=== PATIENT | female | born 2000 | race Caucasian/White ===

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

== ENCOUNTER 2020-03-10 03:10 | Emergency (ER) | payer BC, OTHER ==
[~2020-03-10] VITALS: Ht 152.4 cm; Wt 50.8 kg
[2020-03-10 03:18] VITALS: BP 110/62
[2020-03-10] MEDS ORDERED: KETOROLAC 60 MG/2 ML VIAL IM ONE (03:30)
--- NOTE | 2020-03-10 03:54 | NUR ---
TORADOL WAS ORDERED FOR PT, MED WITHDRAWN AND TAKEN TO BEDSIDE, HOWEVER, PT REFUSED MEDICATION, STATING SHE DID NOT WANT A SHOT. MED WASTED ANDRES RIBERA AWARE
[2020-03-10] MEDS ORDERED: IBUPROFEN 800 MG TAB PO ONE (03:55)
--- NOTE | 2020-03-10 04:15 | NUR ---
PT STATES PAIN IS BETTER, NOW 01/31
--- NOTE | 2020-03-10 04:58 | NUR ---
WRAP PT'S LEFT KNEE WITH 3" XIOMARA WRAP, CHECKED PMSC'S BEFORE AND AFTER WITHOUT INCIDENT. PROVIDED PT WITH CRUTCHES AND GAVE ONE ON ONE INTRUCTIONS ON HOW TO PROPERLY USE THEM WITHOUT INCIDENT.
[2020-03-10 05:08] VITALS: BP 110/62
--- NOTE | 2020-03-10 05:09 | NUR ---
Patient discharged with v/s stable. Written and verbal after care instructions given and explained. Patient verbalized understanding. Ambulatory with to home. All questions addressed prior to discharge. Advised to follow up with PMD.
== END 2020-03-10 05:09 | disposition home or self-care (01) ==
LOC: MED 03:10
DX: S80.02XA Contusion of left knee, initial encounter (principal); J45.909 Unspecified asthma, uncomplicated; V49.9XXA Car occupant (driver) (passenger) injured in unspecified traffic accident, initial encounter; Y93.89 Activity, other specified; Y92.89 Other specified places as the place of occurrence of the external cause; Y99.8 Other external cause status
CPT/HCPCS: 73562; 99283; J1885; Q0092; 96372

== ENCOUNTER 2021-12-27 13:57 | Emergency (ER) | payer BC, OTHER ==
[~2021-12-27] VITALS: Ht 152.4 cm; Wt 62.6 kg
[2021-12-27 14:06] VITALS: BP 124/81
[2021-12-27 14:48] VITALS: BP 116/78
--- NOTE | 2021-12-27 14:48 | NUR ---
21/F C/O SPIDER IN HER RIGHT EAR, STATES SHE FEELS PAIN AND MOVEMENT, DENIES DRAINAGE. PMH: DENIES NKA
--- NOTE | 2021-12-27 14:49 | NUR ---
Patient discharged with v/s stable. Written and verbal after care instructions given and explained. Patient verbalized understanding. Ambulatory with steady gait. All questions addressed prior to discharge. Advised to follow up with PMD.
== END 2021-12-27 14:49 | disposition home or self-care (01) ==
LOC: MED 13:57
DX: T16.1XXA Foreign body in right ear, initial encounter (principal); Z98.890 Other specified postprocedural states; X58.XXXA Exposure to other specified factors, initial encounter; Y93.89 Activity, other specified; Y92.89 Other specified places as the place of occurrence of the external cause; Y99.8 Other external cause status
CPT/HCPCS: 69200; 99284

== ENCOUNTER 2024-01-08 20:01 | Emergency (ER) | payer BC, OTHER ==
[~2024-01-08] VITALS: Ht 152.4 cm; Wt 67.1 kg
[2024-01-08 20:08] VITALS: BP 112/70; PULSE 70; RESP 16; TEMP 98.2; O2SAT 98
[2024-01-08] MEDS: KETOROLAC 30 MG/ML VIAL IM ONE (20:43)
[2024-01-08] MEDS: LIDOCAINE 5% 1 EA PATCH TP ONE (20:43)
[2024-01-08 21:33] VITALS: O2SAT 98
[2024-01-08] MEDS ORDERED: LID5T TP (22:12)
[2024-01-08] MEDS ORDERED: IBUP-2213 PO (22:12)
== END 2024-01-08 22:27 | disposition home or self-care (01) ==
LOC: MED 20:01
DX: R07.81 Pleurodynia (principal); J45.909 Unspecified asthma, uncomplicated; Z79.899 Other long term (current) drug therapy
CPT/HCPCS: 71101; 81025; 93005; 96372; 99283; J1885